=== PATIENT | male | born 1970 | race Caucasian/White ===

== ENCOUNTER 2022-12-29 12:28 | Outpatient (CLI) | payer BC, SELFPAY ==
[2022-12-29 15:47] LABS: Chloride* 105 mmol/L (96-114); Potassium* 4.6 mmol/L (3.6-5.1); Sodium* 138 mmol/L (135-149)
[2022-12-29 15:49] LABS: Carbon Dioxide* 21 mmol/L (20-32); Cholesterol* 243 mg/dL (90-199); Creatinine* 0.9 mg/dL (0.5-1.5); Estimated Glomerular Filt Rate 104 ml/min
[2022-12-29 15:50] LABS: Blood Urea Nitrogen* 18 mg/dL (7-30); Calcium* 9.7 mg/dL (8.4-10.6); Glucose* 193 mg/dL (60-115); HDL Cholesterol* 51 mg/dL (>=40); LDL Cholesterol Calculated 137 mg/dL (<100); Triglycerides* 275 mg/dL (40-149)
== END 2022-12-29 12:29 | disposition home or self-care (01) ==
PROVIDERS: PCP Family Medicine; Visit Provider Family Medicine
DX: E11.9 Type 2 diabetes mellitus without complications (principal); E78.2 Mixed hyperlipidemia
CPT/HCPCS: 80048; 80061

== ENCOUNTER 2023-05-04 16:00 | Outpatient (CLI) | payer BC, SELFPAY | END 2023-05-04 16:01 | disposition home or self-care (01) | LOC: NFLDREF 16:42 | PROVIDERS: PCP Family Medicine; Visit Provider Family Medicine | DX: E11.9 Type 2 diabetes mellitus without complications (principal); E78.2 Mixed hyperlipidemia; Z79.4 Long term (current) use of insulin | CPT/HCPCS: 80061; 84460 ==

== ENCOUNTER 2024-06-26 09:02 | Outpatient (CLI) | payer BC, SELFPAY | END 2024-06-26 09:03 | disposition home or self-care (01) | PROVIDERS: PCP Family Medicine; Visit Provider Family Medicine | DX: E11.9 Type 2 diabetes mellitus without complications (principal); Z79.4 Long term (current) use of insulin; E78.2 Mixed hyperlipidemia; Z12.5 Encounter for screening for malignant neoplasm of prostate | CPT/HCPCS: 80048; 80061; 84460; G0103 ==